=== PATIENT | female | born 1995 | race Caucasian/White ===

== ENCOUNTER 2024-12-27 09:41 | Emergency (ER) | payer BC, SELFPAY ==
[2024-12-27 09:54] VITALS: BP 159/82; PULSE 92; RESP 18; TEMP 36.9; O2SAT 99; BMI 29.9
--- NOTE | 2024-12-27 09:55 | XR_ITS ---
Examination: CT abdomen and pelvis without contrast. Coronal 3-D reconstructions. Sagittal 2-D reconstructions. Date and time of exam:December 27, 2024 11:05 AM, comparison November 05, 2020 INDICATIONS: Onset left-sided flank pain and nausea today, history left hydronephrosis 3 mm proximal left ureteral calculus on CT stone study November 05, 2020 CTDI: vol (mGy): 12.7 DLP: (mGycm): 723 Technique: Axial images of the abdomen have been obtained, 3 mm slice thickness Intravenous contrast material has not been administered. Low dose protocols were performed. One or more of the following dose reduction techniques were used; automated exposure control, adjustment of the mA and/or KV according to patient size, use of iterative reconstruction technique. Findings: No focal liver or splenic lesions No gallstones No pancreatic or adrenal mass Bilateral subcentimeter renal calculi Mild left hydronephrosis, 4 mm proximal left ureteral calculus Aorta normal size Normal appendix No bowel obstruction No bladder mass or bladder calculi Intact osseous structures IMPRESSION: Mild left hydronephrosis secondary to 4 mm proximal left ureteral calculus
--- NOTE | 2024-12-27 09:56 | PD.EDRME ---
Rapid Medical Screening Exam RME Arrival date/time: 12/27/24 09:41 29-year-old female with a history of hyperlipidemia and hypertension presents to the emergency room with a chief complaint of left-sided flank pain x 2 days I have greeted and performed a focused initial assessment of this patient. A comprehensive ED assessment and evaluation of the patient, analysis of all test results, and completion of the medical decision making process will be conducted by additional ED providers. Chief Complaint: Back Pain/Injury Time Seen by Provider: 12/27/24 09:43 Vital signs: Vital Signs Temperature 98.5 F 12/27/24 09:54 Pulse Rate 92 12/27/24 09:54 Respiratory Rate 18 12/27/24 09:54 Blood Pressure 159/82 H 12/27/24 09:54 Pulse Oximetry (%) 99 12/27/24 09:54 Oxygen Delivery Method Room Air 12/27/24 09:54 Vital signs reviewed by provider: Yes
[2024-12-27 10:20] LABS: Basophils # (Auto) 0.0 Thou/mm3 (0.0-0.2); Basophils % (Auto) 0 % (0-2.5); Eosinophils # (Auto) 0.1 Thou/mm3 (0.0-0.5); Eosinophils % (Auto) 1 % (0-10); Hematocrit 34.8 % (36.0-46.0); Hemoglobin 12.1 g/dL (12.0-16.0); Immature Granulocytes Auto 0.02 Thou/mm3 (0.00-0.00); Lymphocytes # (Auto) 0.8 Thou/mm3 (1.0-4.8); Lymphocytes % (Auto) 10 % (10-50); Mean Corpuscular HGB Conc 34.8 g/dl (31.0-37.0); Mean Corpuscular Hemoglobin 31.7 pg (25.0-35.0); Mean Corpuscular Volume 91 fL (80-100); Monocytes # (Auto) 0.7 Thou/mm3 (0.0-0.8); Monocytes % (Auto) 10 % (0-12); Neutrophils # (Auto) 5.8 Thou/mm3 (1.8-7.7); Neutrophils % (Auto) 79 % (37-80); Nucleated Red Blood Cell # 0.00 Thou/mm3 (0.00-0.00); Nucleated Red Blood Cell % 0 /100 WBC (0); Platelet Count 217 Thou/mm3 (140-440); RDW Standard Deviation 40.3 fL (36.4-46.3); Red Blood Count 3.82 Miln/mm3 (4.00-5.20); White Blood Count 7.4 Thou/mm3 (3.6-11.0)
[2024-12-27] MEDS: ACETAMINOPHEN 325 MG TABLET 650 MG PO (10:21)
[2024-12-27] MEDS: ONDANSETRON ODT 4 MG TABRAP PO (10:21)
[2024-12-27 10:36] LABS: Collection Type, Urine Clean Catch
[2024-12-27 10:41] LABS: HCG Qualitative,Urine Negative
[2024-12-27 10:48] LABS: Bilirubin,Urine Negative (Negative); Blood,Urine 2+ (Negative); Clarity,Urine Clear (Clear/Hazy); Color,Urine Lt-Yellow (Lt Yel-Yel); Glucose, Urine Negative (Negative); Ketones,Urine Negative (Negative); Leukocyte Esterase,Urine Negative (Negative); Nitrite,Urine Negative (Negative); PH,Urine 6.0 (5.0-7.0); Protein,Urine Negative (Neg - Trace); RBC,Urine 40 /hpf (0-3); Specific Gravity,Urine 1.020 (1.001-1.035); Squamous Epithelial Cell,Urine 4 /hpf (0-5); Urobilinogen,Urine Negative mg/dL (0.0-1.0); WBC,Urine 1 /hpf (0-5)
[2024-12-27 10:49] LABS: Alanine Aminotransferase 23 U/L (10-49); Albumin, Serum 4.3 gm/dL (3.5-5.0); Albumin/Globulin Ratio 1.7 (1.2-2.2); Alkaline Phosphatase 69 U/L (46-116); Anion Gap 11 (7-16); Aspartate Amino Transferase 27 U/L (0-34); BUN/Creatinine Ratio 8 Ratio (12-20); Bilirubin,Total 0.4 mg/dL (0.3-1.2); Blood Urea Nitrogen 11 mg/dL (9-23); Calcium 9.2 mg/dL (8.3-10.6); Calcium (Corrected) 9.2 mg/dL (8.5-10.1); Carbon Dioxide 22.5 mMol/L (20.0-31.0); Chloride 109 mMol/L (98-107); Creatinine (Component) 1.3 mg/dL (0.6-1.3); Estimated Creatinine Clearance 66.2 mL/min (>60); Globulin 2.5 gm/dL (2.3-3.5); Glucose 101 mg/dL (74-106); Osmolality,Calculated 282 (275-295); Potassium 4.0 mMol/L (3.4-5.1); Sodium 142 mMol/L (136-145); Total Protein 6.8 gm/dL (5.7-8.2); eGFR 56 See Note
[2024-12-27 11:49] VITALS: BP 152/98; PULSE 93; RESP 16; TEMP 37; O2SAT 99
--- NOTE | 2024-12-27 12:01 | PD.EDBACK ---
ED Back Injury Pain RME/HPI General Chief Complaint: Back Pain/Injury Stated Complaint: LEFT FLANK PAIN Time Seen by Provider: 12/27/24 09:43 Arrival date/time: 12/27/24 09:41 RME / HPI RME / HPI Narrative: 29-year-old female with a history of hyperlipidemia and hypertension presents to the emergency room with a chief complaint of left-sided flank pain x 2 days. Patient denies any dysuria denies any hematuria denies any vomiting denies any fever denies any other complaints no medications taken prior to ER visit. Related Data Home Medications ?Medication ?Instructions ?Recorded ?Confirmed atenolol 50 mg tablet 50 mg PO QDAY 02/04/21 02/04/21 atorvastatin 40 mg tablet 40 mg PO QDAY 02/04/21 02/04/21 topiramate 100 mg capsule 100 mg PO BID 02/04/21 02/04/21 sprinkle,extended release 24 hr Previous Rx's ?Medication ?Instructions ?Recorded ibuprofen 800 mg tablet 800 mg PO Q8H PRN pain #30 tabs 12/27/24 tamsulosin 0.4 mg capsule (Flomax) 0.4 mg PO QDAY #14 caps 12/27/24 Allergies Allergy/AdvReac Type Severity Reaction Status Date / Time oatmeal Allergy Hives Uncoded 12/27/24 09:43 Review of Systems Review of Systems Narrative Review of Systems: Review of system reviewed and within normal limits except mentioned in HPI ED Exam Narrative Physical exam: VITAL SIGNS: Reviewed. GENERAL APPEARANCE: Alert and interactive, follows commands, no acute distress, HEAD AND FACE: Non-traumatic. ENT: PERRL, pink conjunctivitis, eyelid no trauma, Mucous membrane moist. NECK: Supple, nontender, no nuchal rigidity. CHEST: No tenderness, no crepitus, no paradoxical movement, no retractions. LUNGS: Clear, well ventilated, symmetric, no rales, no wheezing, no ronchi, no stridor, good breath sounds bilaterally. HEART: Regular rate, regular rhythm, no murmur, no gallops. ABDOMEN: Soft, positive bowel sounds, nondistended, no guarding, nontender, no rebound, no masses, left flank tenderness RECTAL: Deferred. GENITAL: Deferred. NEUROLOGICAL: Gross motor function intact sensory function intact, Appropriate for age. MUSCULOSKELETAL: low back nontender, full range of motion. EXTREMITIES: Nontender, full range of motion. SKIN: Color pink, dry, no rash, no lacerations, no abrasions, no contusions. LYMPHATICS: Deferred. Course Quality Measures none Orders Category Date Time Status CT abdomen pelvis wo con Stat Exams 12/27/24 09:55 Completed CBC Stat Lab 12/27/24 10:06 Completed CMP [Comprehensive Metabolic Panel] Stat Lab 12/27/24 10:06 Completed HCG Qualitative,Urine Stat Lab 12/27/24 10:30 Completed UA [Urinalysis] Stat Lab 12/27/24 10:30 Completed Urine Culture Stat Lab 12/27/24 10:31 Received Acetaminophen Tab [Tylenol Tab] Med 12/27/24 09:56 Discontinued 650 mg PO X1 ONE Ketorolac Inj [Toradol Inj] Med 12/27/24 11:30 Discontinued 30 mg IM X1 ONE Ketorolac Inj [Toradol Inj] Med 12/27/24 11:57 Discontinued 30 mg IVP X1 ONE Ondansetron Odt [Zofran Odt] Med 12/27/24 09:56 Discontinued 4 mg PO X1 ONE Ringers Lactated 1000 ml [Lactated Ringers] 1,000 ml Med 12/27/24 11:58 Discontinued IV 999 mls/hr Tamsulosin HCl [Flomax] Med 12/27/24 11:57 Discontinued 0.4 mg PO X1 ONE Vital Signs Vital signs: Vital Signs Temperature 98.5 F 12/27/24 09:54 Pulse Rate 92 12/27/24 09:54 Respiratory Rate 18 12/27/24 09:54 Blood Pressure 159/82 H 12/27/24 09:54 Pulse Oximetry (%) 99 12/27/24 09:54 Oxygen Delivery Method Room Air 12/27/24 09:54 Back Pain / Injury MDM Narrative MDM Narrative:: 29-year-old female with a history of hyperlipidemia and hypertension presents to the emergency room with a chief complaint of left-sided flank pain x 2 days. Patient denies any dysuria denies any hematuria denies any vomiting denies any fever denies any other complaints no medications taken prior to ER visit. Laboratory workup all came back unremarkable, no UTI noted. Sent for mild hematuria. CT scan of the abdomen and pelvis showed 4 mm left proximal ureteral stone. Patient was given IV fluids, Toradol, with complete resolution of symptoms no vomiting noted tolerating p.o. fluids patient was advised to follow-up with urologist. Patient was also advised to drink a lot of fluids. Strain the urine and save it for the urologist visit. Patient agrees with the plan patient stable for discharge home. Patient data External records reviewed:: None Clinical information provided by:: patient Social determinants that could affect healthcare access:: none Patient has the following chronic illnesses:: Hypertension How is presenting disease/condition affected by chronic disease/condition?: uneffected by Evaluation data The following diagnostics were reviewed and interpreted by me:: lab results and radiology exam(s) Lab and/or radiology exams considered but not ordered:: None Interpretation Summary: See results MDM Medications / Prescriptions Medications or Prescriptions considered but not ordered:: None Medication administrations:: Medication Administration History Discontinued Medications Acetaminophen (Acetaminophen 325 Mg Tablet) 650 mg PO X1 ONE Stop: 12/27/24 09:57 Last Admin: 12/27/24 10:21 Dose: 650 mg Documented By: JOHAN Lactated Ringer's (Lactated Ringers) 1,000 mls @ 999 mls/hr IV .Q1H1M ONE Stop: 12/27/24 12:58 Last Infusion: 12/27/24 13:22 Dose: Infused Documented By: Admin: 12/27/24 12:32 Dose: 999 mls/hr Documented By: EMILIANO Ketorolac Tromethamine (Ketorolac Inj 60 Mg/2 Ml Vial) 30 mg IM X1 ONE Stop: 12/27/24 11:31 Last Admin: 12/27/24 12:39 Dose: Not Given Documented By: EMILIANO Non-Admin Reason: Discontinued Ketorolac Tromethamine (Ketorolac Inj 30 Mg/Ml Vial) 30 mg IVP X1 ONE Stop: 12/27/24 11:58 Last Admin: 12/27/24 12:33 Dose: 30 mg Documented By: EMILIANO Ondansetron HCl (Ondansetron Odt 4 Mg Tabrap) 4 mg PO X1 ONE; Protocol Stop: 12/27/24 09:57 Last Admin: 12/27/24 10:21 Dose: 4 mg Documented By: JOHAN Tamsulosin HCl (Tamsulosin Hcl 0.4 Mg Capsule) 0.4 mg PO X1 ONE Stop: 12/27/24 11:58 Last Admin: 12/27/24 12:33 Dose: 0.4 mg Documented By: VG Flomax, Zofran, Toradol, IV fluids Consultations Consultation(s) initiated? (list below): No Diagnosis Differential diagnosis back pain/injury: lumbar radiculopathy, sciatica and renal colic Most likely diagnosis given after review of the tests above:: Ureterolithiasis, renal colic Admission Indicated Admission indicated?: not indicated Admission Request Was there a request for admission?: No Disposition Plan Disposition Plan: Discharge Discharge Attestation Discharge Attestation: The patient and all family members were given an opportunity to ask questions and understood the discharge instructions. Discharge instructions specifically effects, indications for sooner follow up or return to the emergency department, and the expected course of current diagnosis. Patient condition: Stable Discharge Plan Plan Patient Disposition: HOME (Self Care) Discharge Disposition comment: stable Prescriptions/Referrals Prescriptions/Med Rec: New tamsulosin [Flomax] 0.4 mg capsule 0.4 mg PO QDAY Qty: 14 0RF ibuprofen 800 mg tablet 800 mg PO Q8H PRN (Reason: pain) Qty: 30 0RF No Action atorvastatin 40 mg tablet 40 mg PO QDAY atenolol 50 mg tablet 50 mg PO QDAY topiramate 100 mg cap,sprinkle,ER 24hr dose pack 100 mg PO BID Referrals: Marlo Soto MD [Primary Care Provider] - In 1 week Problem List Clinical Impression: Ureterolithiasis Patient/Caregiver Discharge Instructions Discharge Activity: activity as tolerated Education Materials: ED Kidney Stone w/ Colic Additional Instructions: Thank you for the opportunity for serving you today. You are stable for discharged . You are advised to: Follow-up with your PCP in 1 to 2 days Return to ED for worsening of symptoms Increase oral fluids Take medication as prescribed Print Language: [place]ian Stand Alone Forms: Kimmy Award Info., Patient Portal Info Letter TAHIRA/GABE Supervising Physician TAHIRA/GABE Supervising Physician: MD Anna
[2024-12-27] MEDS: RINGERS LACTATED 1000 ML 1,000 ML 999 ML IV (12:32)
[2024-12-27] MEDS: KETOROLAC INJ 30 MG/ML VIAL IVP (12:33)
[2024-12-27] MEDS: TAMSULOSIN HCL 0.4 MG CAPSULE PO (12:33)
[2024-12-27 13:20] VITALS: BP 150/95; PULSE 90; RESP 18; TEMP 36.9; O2SAT 97
== END 2024-12-27 14:20 | disposition home or self-care (01) ==
PROVIDERS: Nurse Practitioner Family; Emergency Provider Family Medicine; PCP Family Medicine
DX: N20.1 Calculus of ureter (principal)
CPT/HCPCS: 36415; 74176; 80053; 81001; 81025; 85025; 87086; 96361; 96374; 99284; J1885; J7120; Q0162; A9270

== ENCOUNTER → 2025-01-24 | Outpatient (CLI) | payer BC, SELFPAY ==
--- NOTE | 2025-01-24 14:13 | XR_ITS ---
Examination: Retroperitoneal ultrasound, complete Technique: Multiple high resolution grayscale images of the retroperitoneum obtained, including kidneys and bladder. Exam date and time: January 24, 2025, 1422 hours INDICATIONS: Left leg pain 1 month, CT stone study 12/27/2024 mild left hydronephrosis 4 mm proximal left ureteral calculus FINDINGS: Right kidney 11.4 cm renal cortex 1.6 cm Left kidney 11.8 cm renal cortex 2.2 cm Mild left hydronephrosis Mild bilateral renal scar formation No bladder mass or bladder calculi Bladder prevoid volume 757 cc IMPRESSION: Mild left hydronephrosis
== END | disposition home or self-care (01) ==
LOC: CDIM 14:07
PROVIDERS: PCP Nurse Practitioner Family; Referring Provider Nurse Practitioner Family; Visit Provider Nurse Practitioner Family
DX: N13.30 Unspecified hydronephrosis (principal)
CPT/HCPCS: 76770

== ENCOUNTER → 2025-01-24 | Outpatient (CLI) | payer BC, SELFPAY ==
--- NOTE | 2025-01-24 | XR_ITS ---
Examination: Abdomen AP single view Technique: AP portable supine abdomen, single view Exam date and time: January 24, 2025, 1113 hours INDICATIONS: Left-sided abdominal pain beginning 1 month ago, history ureteral calculus FINDINGS: Nonobstructive bowel gas pattern Suspicious for 2 mm right renal calculus No free air Intact osseous structures IMPRESSION: Suspicious for 2 mm right renal calculus
== END | disposition home or self-care (01) ==
PROVIDERS: PCP Family Medicine; Referring Provider Nurse Practitioner Family; Visit Provider Nurse Practitioner Family
DX: N20.0 Calculus of kidney (principal)
CPT/HCPCS: 74018

== ENCOUNTER → 2025-01-28 | Outpatient (BNVA) | payer BC, SELFPAY | END | disposition home or self-care (01) | PROVIDERS: PCP Nurse Practitioner; Referring Provider Nurse Practitioner; Visit Provider Urology | DX: N13.2 Hydronephrosis with renal and ureteral calculous obstruction (principal); I10 Essential (primary) hypertension; E78.5 Hyperlipidemia, unspecified; M35.00 Sjogren syndrome, unspecified; E66.9 Obesity, unspecified; Z68.38 Body mass index [BMI] 38.0-38.9, adult | CPT/HCPCS: 81003; 99212; G0463 ==